=== PATIENT | male | born 1970 | race American Indian/Alaskan Native ===

== ENCOUNTER 2017-02-22 21:47 | Inpatient (IN) | payer MEDICAID, MEDICARE, OTHER ==
[~2017-02-22] VITALS: Ht 177.8 cm; Wt 97.3 kg
[~2017-02-22 21:47] MED LIST: ETOMIDATE 20 MG/10 ML ONE; PROPOFOL 10 MG/ML, 100ML IV ONE; SUCCINYLCHOLINE 20 MG/ML, 10ML ONE
[2017-02-22] MEDS ORDERED: SODIUM CHLORIDE FLUSH 10ML SYR IVF ONE (22:00)
[2017-02-22] MEDS ORDERED: ETOMIDATE 20 MG/10 ML IVPush ONE (22:00)
[2017-02-22] MEDS ORDERED: PLEASE ENTER HEIGHT AND WEIGHT MC SCH (22:00)
[2017-02-22] MEDS ORDERED: SUCCINYLCHOLINE 20 MG/ML, 10ML IVPush ONE (22:00)
[2017-02-22 22:11] LABS: HEMATOCRIT 48.6 % (39.2-51.8); HEMOGLOBIN 16.6 g/dL (13.7-18.0); WHITE BLOOD COUNT 6.4 x10^3/uL (3.4-10)
[2017-02-22] MEDS ORDERED: ONDANSETRON 2MG/ML, 2ML ONE (22:12)
[2017-02-22] MEDS ORDERED: NALOXONE 0.4 MG/ML, 1ML ONE (22:19)
[2017-02-22] MEDS: PROPOFOL 100 ML IV PRN (22:30)
[2017-02-22 22:53] LABS: ACETAMINOPHEN < 2 mcg/mL (10-30); ASPARTATE AMINO TRANSFERASE 26 U/L (15-37); BLOOD UREA NITROGEN 10 mg/dL (7-18)
[2017-02-22 22:56] LABS: ABG COLLECTION SITE RIGHT BRACHIAL
[2017-02-22] MEDS ORDERED: NALOXONE 0.4 MG/ML, 1ML IVPush ONE (23:00)
[2017-02-22 23:50] LABS: DAU SCREEN DISCLAIMER
[2017-02-23] MEDS ORDERED: SENNA/DOCUSATE TABLET NG PRN
[2017-02-23] MEDS ORDERED: DEXTROSE 4 GM TAB.CHEW PO PRN
[2017-02-23] MEDS ORDERED: THIAMINE 200 MG in DEXTROSE 5% 50 ML IVPB ONE
[2017-02-23] MEDS ORDERED: LIDOCAINE-MPF 1%, 2ML ENDO PRN
[2017-02-23] MEDS ORDERED: ONDANSETRON 2MG/ML, 2ML IVPush ONE
[2017-02-23] MEDS ORDERED: MIDAZOLAM 1 MG/ML, 2ML IVPush PRN
[2017-02-23] MEDS ORDERED: DEXTROSE 50%, 50ML SYRINGE IVPush PRN
[2017-02-23] MEDS ORDERED: SODIUM CHLORIDE 0.9% 1,000 ML IV SCH
[2017-02-23] MEDS ORDERED: SENNOSIDES 8.8 MG/5 ML ORAL SOL NG PRN
[2017-02-23] MEDS ORDERED: BISACODYL 10 MG SUPP PR PRN
[2017-02-23] MEDS ORDERED: ACETAMINOPHEN 650 MG/20.3 ML UDC NG PRN
[2017-02-23] MEDS ORDERED: PHARMACY MAY ADJ FOR RENAL FX MC SCH
[2017-02-23] MEDS ORDERED: NS + 40MEQ KCL 1,000 ML IV SCH
[2017-02-23] MEDS ORDERED: LACTULOSE 20 GM/30 ML UDC NG PRN
[2017-02-23] MEDS ORDERED: GLUCAGON 1 MG IM PRN
[2017-02-23] MEDS ORDERED: DIAZEPAM 5 MG/ML, 2ML IV ONE
[2017-02-23] MEDS ORDERED: ENOXAPARIN 40 MG/0.4 ML SQ SCH
[2017-02-23 00:15] LABS: ABG COLLECTION SITE RIGHT BRACHIAL
[2017-02-23] MEDS: PROPOFOL 100 ML IV PRN (01:03)
[2017-02-23 01:29] VITALS: BP 113/70
[2017-02-23] MEDS ORDERED: INSULIN ASPART 100 UNITS/ML, PEN SQ-INSULIN SCH (03:00)
[2017-02-23] MEDS ORDERED: ALBUTEROL/IPRATROPIUM 2.5MG/0.5MG, 3 ML INLINE SCH ×2 (03:00)
[2017-02-23 04:31] LABS: ABG COLLECTION SITE NOT DOCUMENTED
[2017-02-23 04:36] LABS: HEMATOCRIT 44.5 % (39.2-51.8); HEMOGLOBIN 15.4 g/dL (13.7-18.0); WHITE BLOOD COUNT 7.2 x10^3/uL (3.4-10)
[2017-02-23 05:20] LABS: ASPARTATE AMINO TRANSFERASE 21 U/L (15-37); BLOOD UREA NITROGEN 11 mg/dL (7-18)
[2017-02-23 05:57] VITALS: BP 143/73
[2017-02-23] MEDS: INSULIN ASPART 100 UNITS/ML, PEN SQ-INSULIN SCH (07:00)
[2017-02-23] MEDS ORDERED: SODIUM CHLORIDE FLUSH 10ML SYR IVF SCH (09:00)
[2017-02-23] MEDS ORDERED: NALT50TA PO (10:38)
[2017-02-24] MEDS ORDERED: NS + 40MEQ KCL 1,000 ML IV SCH
== END 2017-02-23 13:43 | disposition home or self-care (01) | DRG 208 ==
LOC: ED 23:31 → EDIP 23:36 → ED 23:49 → CCU 02-23 00:30
PROVIDERS: ADMIT Internal Medicine; ATTEND Internal Medicine
PROC: 0BH17EZ Insertion of Endotracheal Airway into Trachea, Via Natural or Artificial Opening (ICD-10-PCS; principal; 2017-02-22)
PROC: 5A1935Z Respiratory Ventilation, Less than 24 Consecutive Hours (ICD-10-PCS; 2017-02-22)
DX: J96.00 Acute respiratory failure, unspecified whether with hypoxia or hypercapnia (principal); G93.41 Metabolic encephalopathy; E87.0 Hyperosmolality and hypernatremia; J98.11 Atelectasis; Y90.8 Blood alcohol level of 240 mg/100 ml or more; E66.9 Obesity, unspecified; Z68.30 Body mass index [BMI] 30.0-30.9, adult; Y92.89 Other specified places as the place of occurrence of the external cause; F10.229 Alcohol dependence with intoxication, unspecified
CPT/HCPCS: 31500; 36415; 36600; 51702; 70450; 71010; 74000; 80053; 80307; 80329; 82140; 82803; 82962; 83735; 84100; 84478; 85025; 87070; 87081; 87205; 93005; 94002; 94003; 94640; 96374; 96375; J1650; J2310; J2405; J2704; J3411; G0479; G0480; J0330; J3480

== ENCOUNTER 2020-12-26 22:36 | Emergency (ER) | payer MEDICAID ==
[~2020-12-26] VITALS: Ht 172.7 cm; Wt 100.0 kg
[~2020-12-26 22:36] MED LIST changes: -ETOMIDATE 20 MG/10 ML ONE; +NALT50TA PO; -PROPOFOL 10 MG/ML, 100ML IV ONE; -SUCCINYLCHOLINE 20 MG/ML, 10ML ONE
[2020-12-26 22:42] VITALS: BP 153/84
--- NOTE | 2020-12-26 22:45 | NUR ---
UNABLE TO DO CLINICAL SCREEN AT THIS TIME. PATIENT UNABLE TO ANSWER QUESTIONS.
--- NOTE | 2020-12-26 22:51 | NUR ---
PATIENT NOT FOUND IN ROOM. ER STAFF SAW PATIENT LEAVE ER THROUGH BACK EXIT. IT CONSULTING MANAGER AWARE.
--- NOTE | 2020-12-26 22:55 | NUR ---
SECURITY CALLED TO BUSINESS ADMINISTRATION INSTRUCTOR WALLET.
--- NOTE | 2020-12-26 22:58 | NUR ---
RUBEN PICKED UP LIANNA AT THIS TIME.
== END 2020-12-26 23:09 ==
LOC: ED 22:40
DX: F10.220 Alcohol dependence with intoxication, uncomplicated (principal); Y90.0 Blood alcohol level of less than 20 mg/100 ml
CPT/HCPCS: 99283